=== PATIENT | male | born 1965 | race African-American/Black ===

== ENCOUNTER 2016-11-29 13:52 | Inpatient (IN) | payer MEDICARE, OTHER ==
[2016-11-29] MEDS ORDERED: RX INFO: IV CONTRAST WAS GIVEN 1 EACH MISC MISCELLANE PRN (14:34)
[2016-11-29] MEDS ORDERED: SODIUM CHLORIDE 0.9% 500 ML IV STA (14:39)
[2016-11-29 15:04] LABS: Basophils % (A) 0 %; CH 27.7; CHCM 32.6; Eosinophils # (A) 0.1 k/uL (0-0.7); Eosinophils % (A) 1 %; HCT 34.6 % (39.0-53.0); HDW 2.49; HGB 11.2 gm/dL (13.0-17.5); Luc # (Auto) 0.21; Luc % (Auto) 3; Lymphocytes # (A) 1.3 k/uL (1.0-4.8); Lymphocytes % (A) 17 %; MCH 27.5 pg (25.0-35.0); MCHC 32.3 g/dL (31.0-37.0); MCV 85.1 fL (80.0-100.0); Mean Platelet Volume 7.4; Monocytes # (A) 0.5 k/uL (0-1.0); Monocytes % (A) 6 %; Neutrophils # (A) 5.6 k/uL (1.3-7.7); Neutrophils % (A) 73 %; RBC 4.06 m/uL (4.30-5.90); RDW 13.5 % (11.5-15.5); WBC 7.7 k/uL (3.8-10.6); WBC (Perox) 8.09
[2016-11-29 15:11] LABS: Calcium 8.6 mg/dL (8.4-10.2); Potassium 4.4 mmol/L (3.5-5.1)
[2016-11-29] MEDS ORDERED: SODIUM CHLORIDE 0.9% 1,000 ML IV ONE (15:21)
[2016-11-29] MEDS ORDERED: INSULIN REGULAR 100 UNIT/ML VIAL IV STA (15:21)
--- NOTE | 2016-11-29 15:29 | ED ---
Neck Injury/Pain HPI - General Chief Complaint: Skin/Abscess/Foreign Body Stated Complaint: neck pain and swelling Time Seen by Provider: 11/29/16 14:19 Mode of arrival: ambulatory Limitations: no limitations - History of Present Illness Initial Comments: This patient is a 51-year-old man who presents for evaluation of a left sided swelling of his neck. The patient states that he noted symptoms initially 1 month ago. Since that time the swelling has gradually enlarged. Patient states that it is now causing some discomfort and he presents to have it evaluated. Patient denies fever or chills, tachycardia, difficulty with speech , breathing, or swallowing. MD Complaint: neck pain Onset/Timin -: month(s) Place: home Radiation: left lateral Severity: moderate Quality: dull Consistency: constant Improves With: none Worsens With: none Associated Symptoms: none - Related Data Home Medications Medication Instructions Recorded Confirmed No Known Home Medications [No 11/29/16 11/29/16 Known Home Medications] Allergies Allergy/AdvReac Type Severity Reaction Status Date / Time No Known Allergies Allergy Verified 11/29/16 15:16 Review of Systems ROS Statement: Those systems with pertinent positive or pertinent negative responses have been documented in the HPI. ROS Other: All systems not noted in ROS Statement are negative. Constitutional: Denies: fever, chills Respiratory: Denies: cough, dyspnea, stridor Cardiovascular: Denies: chest pain, palpitations, syncope Gastrointestinal: Denies: vomiting Musculoskeletal: Denies: back pain Skin: Reports: as per HPI, lesions Neurological: Denies: headache, weakness, numbness, paresthesias Past Medical History Past Medical History: Diabetes Mellitus, Hyperlipidemia, Hypertension Additional Past Medical History / Comment(s): neuropathy History of Any Multi-Drug Resistant Organisms: None Reported Past Surgical History: No Surgical Hx Reported Past Psychological History: No Psychological Hx Reported Smoking Status: Current every day smoker Past Alcohol Use History: None Reported Past Drug Use History: None Reported General Exam Limitations: no limitations General appearance: alert, in no apparent distress Head exam: Present: atraumatic, normocephalic Eye exam: Present: normal appearance. Absent: scleral icterus, conjunctival injection ENT exam: Present: normal oropharynx Neck exam: Present: full ROM, other (The patient has an approximately 12-15 cm left sided neck mass. There is some minimal redness overlying part of it. There is minimal tenderness.). Absent: tenderness, meningismus, lymphadenopathy , thyromegaly Respiratory exam: Present: normal lung sounds bilaterally. Absent: respiratory distress, wheezes, rales, rhonchi, stridor Cardiovascular Exam: Present: normal rhythm, tachycardia, normal heart sounds. Absent: systolic murmur, diastolic murmur, rubs, gallop GI/Abdominal exam: Present: soft. Absent: tenderness Extremities exam: Present: normal inspection, normal capillary refill Back exam: Present: normal inspection Neurological exam: Present: alert Skin exam: Present: warm, dry, intact. Absent: rash Course Vital Signs 11/29/16 11/29/16 11/29/16 13:55 14:44 16:28 Temperature 99.2 F Pulse Rate 118 H 102 H 91 Respiratory 18 18 18 Rate Blood Pressure 219/102 198/105 177/104 O2 Sat by Pulse 99 96 98 Oximetry 11/29/16 17:58 Temperature Pulse Rate 84 Respiratory 18 Rate Blood Pressure 165/88 O2 Sat by Pulse 99 Oximetry Medical Decision Making - Lab Data Result diagrams: 11/29/16 14:46 11/29/16 14:46 Lab Results 11/29/16 11/29/16 11/29/16 Range/Units 14:46 14:46 16:26 WBC 7.7 (3.8-10.6) k/uL RBC 4.06 L (4.30-5.90) m/uL Hgb 11.2 L (13.0-17.5) gm/dL Hct 34.6 L (39.0-53.0) % MCV 85.1 (80.0-100.0) fL MCH 27.5 (25.0-35.0) pg MCHC 32.3 (31.0-37.0) g/dL RDW 13.5 (11.5-15.5) % Plt Count 310 (150-450) k/uL Neutrophils % 73 % Lymphocytes % 17 % Monocytes % 6 % Eosinophils % 1 % Basophils % 0 % Neutrophils # 5.6 (1.3-7.7) k/uL Lymphocytes # 1.3 (1.0-4.8) k/uL Monocytes # 0.5 (0-1.0) k/uL Eosinophils # 0.1 (0-0.7) k/uL Basophils # 0.0 (0-0.2) k/uL Sodium 128 L (137-145) mmol/L Potassium 4.4 (3.5-5.1) mmol/L Chloride 91 L (98-107) mmol/L Carbon Dioxide 23 (22-30) mmol/L Anion Gap 14 mmol/L BUN 20 (9-20) mg/dL Creatinine 1.51 H (0.66-1.25) mg/dL Est GFR (MDRD) Af Amer 59 (>60 ml/min/1.73 sqM) Est GFR (MDRD) Non-Af 49 (>60 ml/min/1.73 sqM) Glucose 601 H* (74-99) mg/dL POC Glucose (mg/dL) 395 H (75-99) mg/dL POC Glu Finisher Tailor Apprentice ID Odilia Ashton Calcium 8.6 (8.4-10.2) mg/dL Disposition Clinical Impression: Hyperglycemia due to type 2 diabetes mellitus, Hypertension, Mass of left side of neck Disposition: ADMITTED IP TO THIS HOSP Condition: Fair
--- NOTE | 2016-11-29 16:05 | CT ---
EXAMINATION TYPE: CT soft tissue neck w con DATE OF EXAM: 11/29/2016 3:47 PM COMPARISON: NONE HISTORY: Left Neck swelling for [address] DLP: 430.7 mGycm CONTRAST: Patient injected with 50 mL of Visipaque 320. TECHNIQUE: Axial images at 3 mm thick sections. Reconstructed images in the coronal plane and sagitt al plane are reviewed. FINDINGS: Limited CT sections are obtained the lung apices. The lung apices appear clear. There is s oft tissue density within the subcarinal region. Punctate calcifications are within this region. Ther e is fullness within the right suprahilar region. Aortopulmonic window and pretracheal lymphadenopath y appears enlarged. The largest lymph nodes appear to be in the right peribronchial region measuring 1.7 cm, pretracheal region measuring 1.7 cm in aortopulmonic window measuring 1.[address] neck: The torus tubarius and fossa of Rosenmuller are normal. Jackhammer Splitter Operator spaces are normal. Para nasal sinuses and mastoid air cells are clear. Parotid glands appear normal and symmetrical. Submandibular glands, are normal. Parapharyngeal spac es are normal. There is a large irregular hypodense mass within the left neck. This is estimated to measure 5.4 x 7.4 cm in size. Abscess formation should be considered. Parotid mass could be considere d. Necrotic lymphadenopathy could be considered. Small lymph nodes are in the soft tissues deep to th e sternocleidomastoid muscle. The hypopharynx appears within normal limits. Vocal cord level appear symmetrical. Thyroid as visualized is normal. Osseous structures are normal. IMPRESSIONS: 1. Large irregular hypodensity within the posterior lateral left neck. Differential diagnosis could i nclude necrotic lymphadenopathy, abscess formation, parotid mass. Correlate with the patient's sympto ms and timing of development. 2. Enlarged lymphadenopathy within the visualized portions of the mediastinum. Consider lymphoma over all within the anterior frontal diagnosis. 3. Report was called case discussed with Dr. Dunn by Dr. Romero by telephone at time of interpreta tion.
[2016-11-29 16:30] LABS: Glucose,Whole Blood 395 mg/dL (75-99)
[2016-11-29] MEDS ORDERED: LISINOPRIL 10 MG TAB PO STA (17:33)
[2016-11-29] MEDS ORDERED: NALOXONE 0.4 MG/ML 1 ML VIAL IV PRN (17:59)
[2016-11-29] MEDS ORDERED: ONDANSETRON 4 MG/2 ML VIAL IVP PRN (17:59)
[2016-11-29] MEDS ORDERED: AMPICILLIN-SULBACTAM 3 GM in SODIUM CHLORIDE 0.9% 100 ML IVPB STA (18:09)
[2016-11-29] MEDS: SODIUM CHLORIDE 0.9% 1,000 ML IV SCH (18:25)
[2016-11-29] MEDS ORDERED: hydrALAZINE HCL 50 MG TAB PO PRN (19:44)
[2016-11-29 20:14] LABS: Glucose,Whole Blood 342 mg/dL (75-99)
[2016-11-29] MEDS: INSULIN LISPRO (humaLOG) 300 UNIT/3 ML VIAL SQ SCH (20:19)
[2016-11-29] MEDS: FAMOTIDINE 20 MG TAB PO SCH (20:19)
[2016-11-29] MEDS ORDERED: INSULIN GLARGINE 100 UNIT/ML 10 ML VIAL SQ SCH (21:00)
[2016-11-29] MEDS ORDERED: INSULIN GLARGINE 100 UNIT/ML 10 ML VIAL SQ ONE (21:00)
[2016-11-29 22:37] VITALS: BMI 36.4
[2016-11-29] MEDS: AMPICILLIN-SULBACTAM 3 GM in SODIUM CHLORIDE 0.9% 100 ML IVPB SCH (23:47)
[2016-11-30 02:20] LABS: Glucose,Whole Blood 225 mg/dL (75-99)
[2016-11-30] MEDS: AMPICILLIN-SULBACTAM 3 GM in SODIUM CHLORIDE 0.9% 100 ML IVPB SCH ×4 (05:39→23:44)
[2016-11-30 07:10] LABS: Glucose,Whole Blood 123 mg/dL (75-99)
[2016-11-30 07:24] LABS: Basophils % (A) 0 %; CH 27.8; Eosinophils # (A) 0.1 k/uL (0-0.7); Eosinophils % (A) 1 %; HCT 31.6 % (39.0-53.0); HDW 2.45; HGB 10.3 gm/dL (13.0-17.5); Luc % (Auto) 3; Lymphocytes # (A) 1.5 k/uL (1.0-4.8); Lymphocytes % (A) 20 %; MCH 27.7 pg (25.0-35.0); MCHC 32.8 g/dL (31.0-37.0); MCV 84.5 fL (80.0-100.0); Mean Platelet Volume 7.2; Monocytes # (A) 0.5 k/uL (0-1.0); Monocytes % (A) 7 %; Neutrophils # (A) 5.1 k/uL (1.3-7.7); Neutrophils % (A) 69 %; RBC 3.73 m/uL (4.30-5.90); RDW 13.5 % (11.5-15.5); WBC 7.4 k/uL (3.8-10.6); WBC (Perox) 7.99
[2016-11-30 07:41] LABS: Anion Gap 7 mmol/L; Blood Urea Nitrogen 14 mg/dL (9-20); Calcium 8.4 mg/dL (8.4-10.2); Carbon Dioxide 25 mmol/L (22-30); Chloride 105 mmol/L (98-107); Glucose 122 mg/dL (74-99); Non-African American GFR(MDRD) 58 (>60 ml/min/1.73 sqM); Potassium 3.8 mmol/L (3.5-5.1); Sodium 137 mmol/L (137-145)
--- NOTE | 2016-11-30 07:49 | HP ---
DATE OF ADMISSION: 11/29/2016 The patient is a very pleasant 51 -year-old gentleman came in with complaints of left sided neck swelling, ( ) small golf ball and now grew too much bigger size, about 10 inch ball ( ). On exam, it appeared to be ( ), the patient denied any fever or chills. The patient ( ) tender upon pushing on it, because of the stretching of the skin, the patient does have some redness, the patient has localized tenderness. Does not appear to be like an abscess, not tender enough to say abscess. The patient ( ) mostly ( ). CT scan of the chest and neck was done that showed some anterior chest lymphadenopathy along with ( ) from the parotid gland or even ( ) which is ( ) lymphadenopathy. The possibility of which cannot be ruled out and the patient is diabetic, does not take any medications ( ) physician, the patient came in with elevated blood sugars with significant drop in blood sugars with just 10 units of IV insulin, the patient's blood sugars are around 600. When he came in, they have come down at this time and the patient is hyponatremic secondary to pseudo-hypoglycemia and ( ) consideration. REVIEW OF SYSTEMS: CONSTITUTIONAL: No fever, no malaise, no fatigue. HEENT: No recent visual problems or hearing problems. Denied any sore throat. NECK: As mentioned earlier. CARDIOVASCULAR: No chest pain, orthopnea, PND, no palpitations, no syncope. PULMONARY: No shortness of breath, no cough, no hemoptysis. GASTROINTESTINAL: No diarrhea, no nausea, no vomiting, no abdominal pain. Normoactive bowel sounds. NEUROLOGICAL: No headaches, no weakness, no numbness. HEMATOLOGICAL: Denies any bleeding or petechiae. GENITOURINARY: Denies any burning micturition, frequency, or urgency. MUSCULOSKELETAL/RHEUMATOLOGICAL: Denies any joint pain, swelling, or any muscle pain. ENDOCRINE: Denies any polyuria or polydipsia. The rest of the 14 point review of systems is negative. PAST MEDICAL HISTORY: None. Home medications: None. The patient does have history of diabetes mellitus, hyperlipidemia and hypertension. The patient does smoke a pack per day. Denied any alcohol abuse, denied any drug abuse. FAMILY HISTORY: Significant for hypertension and diabetes mellitus . PHYSICAL EXAMINATION: Pulse of 118 when he came in because he was dehydrated and ( ) 219 now. Blood pressure 137/104, pulse 91. Respiratory rate 18. GENERAL: The patient is alert and oriented x3, not in any acute distress. Well developed, well nourished. HEENT: Pupils are round and equally reacting to light. EOMI. No scleral icterus. No conjunctival pallor. Normocephalic, atraumatic. No pharyngeal erythema. No thyromegaly. NECK: ( ). CARDIOVASCULAR: S1 and S2 present. No murmurs, rubs, or gallops. PULMONARY: Chest is clear to auscultation, no wheezing or crackles. ABDOMEN: Soft, nontender, nondistended, normoactive bowel sounds. No palpable organomegaly. MUSCULOSKELETAL: No joint swelling or deformity. EXTREMITIES: No cyanosis, clubbing, or pedal edema. NEUROLOGICAL: Gross neurological examination did not reveal any focal deficits. SKIN: No rashes. LABORATORY DATA: CBC, BMP significant for low sodium of 128, creatinine 1.51 with blood glucose of 601. Patient does not have any leukocytosis. CBC: No significant abnormality was appreciated. ASSESSMENT AND PLAN: 1. Left sided neck mass ( ) but can be related to lymphoma, mostly Hodgkin's lymphoma with some necrotic area, we will obtain surgical consult for possible biopsy versus drainage although does not appear to be an abscess although the patient was started on Unasyn which ( ) at this time. 2. Diabetes mellitus Type II. Uncontrolled blood sugars as the patient is highly noncompliant with medications, will be started on Lantus along with sliding scale insulin ( ) the patient will be started on diet. 3. Hypovolemic hyponatremia along with pseudo-hyponatremia. Patient will be started on IV fluids at ( ) per hour. 4. ( ) intravascular volume depletion. 5. Hypertension. Will monitor the ( ) blood pressure goes up to ( ) 120 depending on his labs tomorrow, we ( ) on Lisinopril. ( ) I do not believe ( ) at this point of time ( ). 6. Hyperlipidemia. I do not have any ( ) level available at this point of time. Patient will need a primary care physician upon discharge.
[2016-11-30] MEDS: SODIUM CHLORIDE 0.9% 1,000 ML IV SCH ×3 (07:54→18:30)
[2016-11-30] MEDS: FAMOTIDINE 20 MG TAB PO SCH ×2 (07:54→21:44)
[2016-11-30] MEDS: INSULIN LISPRO (humaLOG) 300 UNIT/3 ML VIAL SQ SCH ×4 (07:55→21:44)
--- NOTE | 2016-11-30 08:31 | CONS ---
DATE OF CONSULTATION: ADDENDUM: The patient will need consultation also for his chest lymphadenopathy with the appropriate service, likely cardiothoracic surgery for possible further biopsy or work-up. Continue his medical management otherwise for his other issues such hypoglycemia and hypertension.
--- NOTE | 2016-11-30 08:39 | CONS ---
DATE OF CONSULTATION: REASON FOR CONSULTATION: Left neck mass. HISTORY: This is a 51-year-old black male who has had gradually enlarging left neck mass for one month. This had become uncomfortable with minimal pain although he has had no fever, chills, tachycardia, hoarseness, respiratory difficulty or dysphagia. He did state that he had a "boil" under his chin previously, which he would express drainage out of but never in this area. His ER evaluation also showed hyperglycemia with blood sugar of 600 and also hypertension and these are being treated as an inpatient. He is empirically on Unasyn presently. PAST MEDICAL HISTORY: Positive for diabetes, hypertension, hyperlipidemia, neuropathy. PAST SURGICAL HISTORY: A colonoscopy, age 43, which was negative. ALLERGIES: No known drug allergies. CURRENT HOME MEDICATIONS: None, although he has been prescribed insulin previously, but he has not been taking this for the last 2 months. SOCIAL HISTORY: He does smoke. He does not drink alcohol. REVIEW OF SYSTEMS: Noncontributory other than as above. PHYSICAL EXAM: VITAL SIGNS: Temperature 98.2. Admission pulse 118, although this diminished to within normal limits. Blood pressure initially at 219/102, although this has improved on the floor also. O2 saturation 96 to 99% on room air. GENERAL: Well-developed black male in no acute distress. HEENT: Head normocephalic and atraumatic. Ears bilateral canals clear, tympanic membranes unremarkable and mobile. Nose shows no drainage or obstruction. Mouth and throat show no abnormal masses or lesions. The left posterolateral neck shows a large mass approximately 12 cm across with discoloration darkening of the skin and erythema. It is tender mildly to moderately palpation. It is soft and feels fluctuant deeply. LUNGS: Clear to auscultation bilaterally. HEART: Regular rate and rhythm without murmur, gallop appreciated. EXTREMITIES: No gross deformities. NEUROLOGIC: Grossly intact. Labs showed a normal white blood cell count at 7700, although he is anemic at 11.[address] showed 5.4 x 7.4 cm large area of hypodense mass left neck with multiple considerations in the differential including abscess, parotid mass, necrotic lymphadenopathy and there are also smaller lymph nodes in the area. He did have some mediastinal and chest nodes also noted. ASSESSMENT: 1. Left neck abscess. 2. Hyperglycemia. 3. Hypertension. 4. Mediastinal lymphadenopathy. PLAN: I have recommended fine-needle aspiration of this mass and reviewed the indications, alternatives, potential benefits, and risks of the procedure with the patient with the risks including but not inclusive of the risks of local anesthesia, bleeding, infection, scarring, numbness, decrease shoulder mobility. The patient understands these risks and agree to proceed. This was performed. See procedure note. Approximately 7 mL of purulence was obtained. This was sent for culture. I have further recommended formal incision and drainage of this left neck abscess. I reviewed the indications, alternatives and potential benefits, and risks of the procedure with the patient with risks including but not inclusive of the risks of local anesthesia with IV sedation, which I reviewed with him and he would prefer rather than straight local anesthesia, bleeding, infection, scarring, cosmetic deformity, recurrence, need for further procedures in the future depending on final pathology, healing and possibility of repeat abscess formation, the numbness, decrease shoulder mobility due to the proximately of spinal accessory nerve. The patient understands these risks and agrees to proceed. He is empirically on Unasyn already. Surgery will be scheduled for tomorrow morning. He is already n.p.o after midnight.
--- NOTE | 2016-11-30 08:41 | PCN ---
DATE OF PROCEDURE: PREOPERATIVE DIAGNOSIS: Left neck mass. POSTOPERATIVE DIAGNOSIS: Left neck abscess. PROCEDURE: Fine needle aspiration. ANESTHESIA: Local. ESTIMATED BLOOD LOSS: Minimal 1 mL. COMPLICATIONS: None. OPERATIVE FINDINGS: Large left neck abscess with aspiration of approximately 8 mL of purulent drainage, which was cultured. PROCEDURE: Patient was in his hospital bed in a supine position. Informed consent was obtained as noted above. Patient was prepped and draped in the usual aseptic fashion. Then 1% lidocaine with 1: 100,000 epinephrine was infused subcutaneously with a total of 1 mL used. A 23 gauge needle was then used to aspirate in the central portion of the abscess, as noted above. This did decompress the mass to a degree but not nearly completely. Sterile Band-Aid was placed. It was apparent this would need a formal incision and drainage as this was quite large and needle aspiration would not suffice to improve this further. The patient tolerated the procedure well with no complications.
[2016-11-30] MEDS ORDERED: LISINOPRIL 10 MG TAB PO SCH (09:00)
[2016-11-30] MEDS ORDERED: SODIUM CHLORIDE 0.9% 1,000 ML IV ONE (09:43)
[2016-11-30] MEDS ORDERED: ONDANSETRON 4 MG/2 ML VIAL IVP ONE (09:44)
[2016-11-30] MEDS ORDERED: MIDAZOLAM 2 MG/2 ML VIAL ONE (09:51)
[2016-11-30] MEDS ORDERED: PROPOFOL 10 MG/ML 20 ML VIAL IV ONE (09:51)
[2016-11-30] MEDS ORDERED: fentaNYL (PF) 50 MCG/ML 2 ML AMP ONE (09:51)
[2016-11-30] MEDS ORDERED: LIDOCAINE 1%-EPI 1:100,000 20 ML VIAL SQ ONE ×2 (10:09)
--- NOTE | 2016-11-30 10:35 | P.OP ---
Date of Procedure: 11/30/16 Preoperative Diagnosis: Left neck abscess Postoperative Diagnosis: Same Procedure(s) Performed: Incision and drainage left neck abscess Anesthesia: MAC Surgeon: Armin Reed Estimated Blood Loss (ml): 5 Pathology: none sent Condition: stable Disposition: PACU Indications for Procedure: This is a 51-year-old black male with a progressively enlarging left neck mass for the last month which has become tender. Needle aspiration last night showed purulence- computed tomography scan showed 7 x 5 cm mass with multiple diagnoses potentially listed as etiology including abscess Operative Findings: Large left posterior lateral neck abscess approximately 12 cm with copious purulence which was recultured Description of Procedure: The patient was brought to the operative suite and placed in a supine position. The patient underwent induction of IV sedation after appropriate monitors were placed by the flight security specialist. The patient was prepped and draped in usual aseptic fashion. 1% lidocaine with 1 100,000 epinephrine was infused subcutaneously and field block fashion overlying the left neck abscess. A 2.5 cm incision was made in the midportion of the abscess and carried through the skin and subcutaneous tissue where the abscess was entered. This was approximately 1 cm below the skin surface. Copious amount of purulent drainage was suctioned as well as cultured. This was allowed to drain until no further purulence was noted. The wound was irrigated with sterile normal saline until no further purulence was noted. A 1/4 inch Ángel drain was placed sutured to the skin with a 3-0 Prolene suture. A light pressure dressing was then placed. The patient was allowed to emerge from anesthesia having tolerated procedure well was transferred postoperative recovery area in satisfactory condition.
--- NOTE | 2016-11-30 10:47 | P.PN ---
Progress Note - Text Patient underwent incision and drainage left neck abscess today. He tolerated this well. He does have a small [place] drain. The patient already preoperatively that once she is ready for discharge otherwise medically he can be discharged to home. He does have cultures pending. Empirically would use Unasyn which he is already on and Augmentin would be reasonable postoperatively and less cultures indicate other sensitivities which may need antibiotic change. He would then need to follow up in the office. This drain would need to stay at least a few days and he can follow up in the office for drain removal upon discharge. The dressing can be changed once a day and as needed and I reviewed this with the patient already. Please contact me if there are any questions or concerns.
[2016-11-30] MEDS ORDERED: HYDROmorphone 1 MG/ML 1 ML SYRINGE IVP ONE (11:00)
[2016-11-30 11:20] LABS: Glucose,Whole Blood 147 mg/dL (75-99)
[2016-11-30] MEDS: traMADol 50 MG TAB PO PRN ×2 (12:25→20:30)
[2016-11-30] MEDS: MORPHINE SULFATE 4 MG/ML SYRINGE IVP PRN (15:34)
[2016-11-30] MEDS ORDERED: IV VANCOMYCIN PER PHARMACY 1 EACH MISC MISCELLANE PRN (16:14)
--- NOTE | 2016-11-30 16:59 | PN ---
Patient is a 51-year-old diabetic with uncontrolled blood sugars, came in with abscess of the left neck area. Patient underwent drainage today. Wound cultures were sent and also I will add vancomycin to his regimen. Patient is already on Unasyn. Patient apparently had a chin abscess in the past. REVIEW OF SYSTEMS: CARDIOVASCULAR: No chest pain, no orthopnea, no PND, no palpitations. PULMONARY: Denied any shortness of breath. No cough or hemoptysis. GASTROINTESTINAL: No diarrhea, nausea or vomiting. No abdominal pain. Normoactive bowel sounds. NEUROLOGIC: No headaches, no weakness, no numbness. NECK AREA: Patient is complaining of severe pain. Medications were reviewed. Medication changes as mentioned in the interval history. PHYSICAL EXAMINATION: VITAL SIGNS: Temperature 97.9, pulse of 78, respiratory rate OF 16, blood pressure 159/76, saturating at 97% on room air. HEENT EXAMINATION: Patient has a left and neck mass, which is surgically drained and postsurgically packed. GENERAL: The patient is alert and oriented x3, not in any acute distress. Well developed, well nourished. Normocephalic, atraumatic. No pharyngeal erythema. No thyromegaly. CARDIOVASCULAR: S1 and S2 present. No murmurs, rubs, or gallops. PULMONARY: Chest is clear to auscultation, no wheezing or crackles. ABDOMEN: Soft, nontender, nondistended, normoactive bowel sounds. No palpable organomegaly. MUSCULOSKELETAL: No joint swelling or deformity. EXTREMITIES: No cyanosis, clubbing, or pedal edema. NEUROLOGICAL: Gross neurological examination did not reveal any focal deficits. SKIN: No rashes. LABORATORY DATA: CBC, CMP are significant for improved sodium to 137, creatinine improved to 1.3. ASSESSMENT AND PLAN: 1. Left-sided neck abscess, patient is status post drainage, he is on Unasyn. 2. Type 2 diabetes mellitus, uncontrolled blood sugars secondary to noncompliance with medication. Patient's blood sugars are well controlled now. Patient will be started on metformin if his kidney function improves upon discharge. 3. Hypovolemic, hyponatremia along with pseudohyponatremia improved with IV fluids and control of blood sugars. 4. Severe intravascular volume depletion and acute renal failure secondary to that, which improved. 5. Hypertension. Continue with ( ) and hydralazine. Once his kidney function improves, patient can be started on lisinopril and awaiting abscess cultures.
[2016-11-30 17:18] LABS: Glucose,Whole Blood 238 mg/dL (75-99)
[2016-11-30] MEDS: VANCOMYCIN 2,000 MG in SODIUM CHLORIDE 0.9% 500 ML IVPB SCH (20:31)
[2016-11-30 20:41] LABS: Glucose,Whole Blood 266 mg/dL (75-99)
[2016-11-30] MEDS: INSULIN GLARGINE 100 UNIT/ML 10 ML VIAL SQ SCH (21:44)
[2016-12-01] MEDS: MORPHINE SULFATE 4 MG/ML SYRINGE IVP PRN ×3 (01:49→14:45)
[2016-12-01 03:14] LABS: Glucose,Whole Blood 125 mg/dL (75-99)
[2016-12-01] MEDS: AMPICILLIN-SULBACTAM 3 GM in SODIUM CHLORIDE 0.9% 100 ML IVPB SCH ×4 (05:41→23:51)
[2016-12-01] MEDS: traMADol 50 MG TAB PO PRN ×3 (05:41→22:09)
[2016-12-01] MEDS: SODIUM CHLORIDE 0.9% 1,000 ML IV SCH ×3 (05:42→17:52)
[2016-12-01 06:54] LABS: Glucose,Whole Blood 91 mg/dL (75-99)
[2016-12-01] MEDS: VANCOMYCIN 2,000 MG in SODIUM CHLORIDE 0.9% 500 ML IVPB SCH ×2 (07:40→19:16)
[2016-12-01] MEDS: INSULIN LISPRO (humaLOG) 300 UNIT/3 ML VIAL SQ SCH ×4 (08:03→20:31)
[2016-12-01] MEDS: FAMOTIDINE 20 MG TAB PO SCH ×2 (08:04→20:30)
[2016-12-01 10:54] LABS: Basophils % (A) 0 %; CH 27.6; CHCM 32.2; Eosinophils # (A) 0.1 k/uL (0-0.7); Eosinophils % (A) 2 %; HCT 31.3 % (39.0-53.0); HDW 2.39; Luc # (Auto) 0.14; Luc % (Auto) 3; Lymphocytes # (A) 1.6 k/uL (1.0-4.8); Lymphocytes % (A) 26 %; MCH 27.5 pg (25.0-35.0); Monocytes # (A) 0.4 k/uL (0-1.0); Monocytes % (A) 7 %; Neutrophils # (A) 3.6 k/uL (1.3-7.7); Neutrophils % (A) 62 %; RBC 3.64 m/uL (4.30-5.90); WBC 5.9 k/uL (3.8-10.6); WBC (Perox) 6.36
[2016-12-01 11:05] LABS: Anion Gap 6 mmol/L; Blood Urea Nitrogen 12 mg/dL (9-20); Calcium 8.1 mg/dL (8.4-10.2); Carbon Dioxide 27 mmol/L (22-30); Chloride 103 mmol/L (98-107); Glucose 164 mg/dL (74-99); Non-African American GFR(MDRD) 51 (>60 ml/min/1.73 sqM); Potassium 4.6 mmol/L (3.5-5.1); Sodium 136 mmol/L (137-145)
[2016-12-01 11:33] LABS: Glucose,Whole Blood 171 mg/dL (75-99)
--- NOTE | 2016-12-01 11:45 | PN ---
A 51-year-old who came in with left neck abscess and patient has uncontrolled blood sugars, due to noncompliance of medications and patient underwent drainage and wound cultures are showing gram-positive cocci. It is probably mostly Streptococcus or Staphylococcus and patient on vancomycin and Unasyn at this point of time to cover the ( ) as well. Patient's symptoms started as folliculitis, I believe. Because of uncontrolled blood sugars, patient ended up having this abscess. REVIEW OF SYSTEMS: CARDIOVASCULAR: No chest pain, no orthopnea, no PND, no palpitations. PULMONARY: Denied any shortness of breath. No cough or hemoptysis. GASTROINTESTINAL: No diarrhea, nausea or vomiting. No abdominal pain. Normoactive bowel sounds. NEUROLOGIC: No headaches, no weakness, no numbness. Medications were reviewed. PHYSICAL EXAMINATION: VITAL SIGNS: Temperature 98.1, pulse of 82, respiratory rate of 16, blood pressure is 133/70, saturating at 97% on room air. HEENT EXAMINATION: Patient's left side of the neck is packed and I did not examine that as patient has a drain in place that needs to be open by an ENT surgeon. GENERAL: The patient is alert and oriented x3, not in any acute distress. Well developed, well nourished. Normocephalic, atraumatic. No pharyngeal erythema. No thyromegaly. CARDIOVASCULAR: S1 and S2 present. No murmurs, rubs, or gallops. PULMONARY: Chest is clear to auscultation, no wheezing or crackles. ABDOMEN: Soft, nontender, nondistended, normoactive bowel sounds. No palpable organomegaly. MUSCULOSKELETAL: No joint swelling or deformity. EXTREMITIES: No cyanosis, clubbing, or pedal edema. NEUROLOGICAL: Gross neurological examination did not reveal any focal deficits. SKIN: No rashes. LABORATORY DATA: CBC, no significant abnormality compared to yesterday. I do not have any basic metabolic profile at this time. ASSESSMENT AND PLAN: 1. Neck abscess, status post consistent drainage. 2. Type 2 diabetes mellitus, uncontrolled blood sugars due to noncompliance with medications. 3. Hypovolemic hyponatremia. 4. Hypertension. 5. Hyperlipidemia. 6. Severe intravascular volume depletion on admission, improved with IV fluids. Plan is to continue with present medications, awaiting cultures and awaiting recommendations from ENT. We have to wait until I get the cultures and studies before I can discharge the patient.
[2016-12-01 17:08] LABS: Glucose,Whole Blood 193 mg/dL (75-99)
[2016-12-01] MEDS: ONDANSETRON 4 MG/2 ML VIAL IVP PRN (17:58)
[2016-12-01 20:24] LABS: Glucose,Whole Blood 212 mg/dL (75-99)
[2016-12-01] MEDS: INSULIN GLARGINE 100 UNIT/ML 10 ML VIAL SQ SCH (20:30)
[2016-12-01] MEDS: PREGABALIN 100 MG CAP PO SCH (20:31)
[2016-12-02] MEDS: SODIUM CHLORIDE 0.9% 1,000 ML IV SCH ×3 (01:16→17:14)
[2016-12-02 02:10] LABS: Glucose,Whole Blood 225 mg/dL (75-99)
[2016-12-02] MEDS ORDERED: VANCOMYCIN TROUGH DUE 1 EACH MISC MISCELLANE ONE (05:00)
[2016-12-02] MEDS: AMPICILLIN-SULBACTAM 3 GM in SODIUM CHLORIDE 0.9% 100 ML IVPB SCH ×4 (05:24→23:35)
[2016-12-02 05:34] LABS: CH 27.4; CHCM 32.3; HCT 29.5 % (39.0-53.0); HDW 2.43; HGB 9.5 gm/dL (13.0-17.5); MCH 27.5 pg (25.0-35.0); MCHC 32.3 g/dL (31.0-37.0); MCV 85.3 fL (80.0-100.0); Mean Platelet Volume 8.8; RBC 3.45 m/uL (4.30-5.90); RDW 13.8 % (11.5-15.5); WBC 4.7 k/uL (3.8-10.6)
[2016-12-02 05:53] LABS: Calcium 8.1 mg/dL (8.4-10.2); Potassium 4.3 mmol/L (3.5-5.1)
[2016-12-02] MEDS: traMADol 50 MG TAB PO PRN ×2 (06:09→18:08)
[2016-12-02] MEDS: VANCOMYCIN 2,000 MG in SODIUM CHLORIDE 0.9% 500 ML IVPB SCH (06:34)
[2016-12-02 07:10] LABS: Glucose,Whole Blood 206 mg/dL (75-99)
[2016-12-02] MEDS: FAMOTIDINE 20 MG TAB PO SCH ×2 (07:47→20:56)
[2016-12-02] MEDS: INSULIN LISPRO (humaLOG) 300 UNIT/3 ML VIAL SQ SCH ×4 (07:47→20:56)
[2016-12-02] MEDS: ATORVASTATIN 20 MG TAB PO SCH (07:47)
[2016-12-02] MEDS: PREGABALIN 100 MG CAP PO SCH ×2 (07:52→20:55)
[2016-12-02] MEDS: LISINOPRIL 10 MG TAB PO SCH (10:31)
[2016-12-02 12:15] LABS: Glucose,Whole Blood 285 mg/dL (75-99)
[2016-12-02] MEDS: ONDANSETRON 4 MG/2 ML VIAL IVP PRN (12:27)
[2016-12-02 17:11] LABS: Glucose,Whole Blood 223 mg/dL (75-99)
--- NOTE | 2016-12-02 17:12 | P.PN ---
Subjective Date of service 12/02/2016 Progress note being dictated for Dr. Doss Interval history: This is a 51-year-old gentleman admitted with left neck abscess, uncontrolled diabetes mellitus, hypovolemic hyponatremia, severe intravascular depletion and multiple other medical issues. Maintained on IV fluid hydration, Unasyn. Wound cultures positive for staph capitis SS capitis. Anaerobic culture pending. Afebrile, normal WBC. Evaluated by ENT with recommendations noted. Positive diet intake., No nausea or vomiting .blood sugars elevated in the 200s, improving .Denies chest pain, palpitations or increasing shortness of breath. Objective - Vital Signs Vital signs: Vital Signs Temp 97.8 F 12/02/16 15:30 Pulse 72 12/02/16 15:30 Resp 18 12/02/16 15:30 BP 149/92 12/02/16 15:30 Pulse Ox 98 12/02/16 15:30 Intake & Output 12/01/16 12/02/16 12/02/16 18:59 06:59 18:59 Intake Total 200 2090 849 Balance 200 2090 849 Weight 122 kg 122 kg Intake: IV 200 100 100 Ampicillin-Sulbactam 3 gm 200 100 100 In Sodium Chloride 0.9% 100 ml @ 100 mls/hr IVPB Q6HR [facility] Rx#:[id number] Intake, IV Titration 1150 749 Amount Ampicillin-Sulbactam 3 gm 100 749 In Sodium Chloride 0.9% 100 ml @ 100 mls/hr IVPB Q6HR [facility] Rx#:[id number] Sodium Chloride 0.9% 1, 550 000 ml @ 125 mls/hr IV . Q8H [facility] Rx#:[id number] Vancomycin 2,000 mg In 500 Sodium Chloride 0.9% 500 ml @ 167 mls/hr IVPB Q12H [facility] Rx#:[id number] Oral 840 Other: Voiding Method Toilet Toilet Toilet # Voids 1 1 3 - Exam PHYSICAL EXAM: VITAL SIGNS: As above GENERAL: [Sitting up in bed, no acute distress] HEENT: [Pupils equal conjunctiva normal.] NECK: [Supple, trachea midline, no JVD] RESPIRATORY EFFORT:[Normal] LUNGS: [Lungs clear, no crackles wheezes, rhonchi] CARDIOVASCULAR[regular S1 and S2, no murmurs rubs or gallops, no edema] GI: [Abdomen soft, nontender, positive bowel sounds.] PSYCH: [Alert and oriented -3, mood and affect normal.] SKIN: Left neck dressing clean dry and intact NEURO: No focal deficits, moves all 4 extremities, strength and sensation intact Microbiology 11/30/16 10:22 Neck Gram Stain - Final 11/30/16 10:22 Neck Wound Culture - Final Staph capitis SS capitis 11/29/16 22:16 Neck Gram Stain - Final 11/29/16 22:16 Neck Wound Culture - Final Staph capitis SS capitis 11/30/16 10:22 Neck Anaerobic Culture - Preliminary 11/29/16 22:16 Neck Anaerobic Culture - Preliminary - Labs CBC & Chem 7: 12/02/16 05:24 12/02/16 05:24 Labs: Abnormal Lab Results - Last 24 Hours (Table) 12/01/16 12/01/16 12/02/16 Range/Units 17:07 20:22 02:08 RBC (4.30-5.90) m/uL Hgb (13.0-17.5) gm/dL Hct (39.0-53.0) % Sodium (137-145) mmol/L Creatinine (0.66-1.25) mg/dL Glucose (74-99) mg/dL POC Glucose (mg/dL) 193 H 212 H 225 H (75-99) mg/dL Calcium (8.4-10.2) mg/dL Vancomycin Trough ug/mL 12/02/16 12/02/16 12/02/16 Range/Units 05:24 05:24 05:24 RBC 3.45 L (4.30-5.90) m/uL Hgb 9.5 L (13.0-17.5) gm/dL Hct 29.5 L (39.0-53.0) % Sodium 135 L (137-145) mmol/L Creatinine 1.60 H (0.66-1.25) mg/dL Glucose 201 H (74-99) mg/dL POC Glucose (mg/dL) (75-99) mg/dL Calcium 8.1 L (8.4-10.2) mg/dL Vancomycin Trough 32.7 H* ug/mL 12/02/16 12/02/16 Range/Units 07:08 12:07 RBC (4.30-5.90) m/uL Hgb (13.0-17.5) gm/dL Hct (39.0-53.0) % Sodium (137-145) mmol/L Creatinine (0.66-1.25) mg/dL Glucose (74-99) mg/dL POC Glucose (mg/dL) 206 H 285 H (75-99) mg/dL Calcium (8.4-10.2) mg/dL Vancomycin Trough ug/mL Microbiology - Last 24 Hours (Table) 11/30/16 10:22 Gram Stain - Final Neck Wound Culture - Final Staph capitis SS capitis 11/29/16 22:16 Gram Stain - Final Neck Wound Culture - Final Staph capitis SS capitis 11/30/16 10:22 Anaerobic Culture - Preliminary Neck 11/29/16 22:16 Anaerobic Culture - Preliminary Neck Assessment and Plan Plan: 1. [Neck abscess, status post I&D. Wound cultures positive for staph capitis SS capitis. Anaerobic culture pending. 2. [Diabetes mellitus type 2, uncontrolled], and patient noncompliant with medications. Hemoglobin A1c pending 3. Hypovolemic hyponatremia, improving. 4. [Hypertension]. 5. [Hyperlipidemia]. 6. [Severe intravascular volume depletion on admission, improved with IV fluids] . Plan: Continue on current medication regime ,monitoring and symptomatic treatment. Lantus dose increased, close monitoring of Accu-Cheks. Await anaerobic results. Discharge planning in progress. Further recommendations to follow. The impression and plan of care has been dictated as directed. : I performed a H&P examination of this patient and discussed the same with the dictator. I agree with the dictator's note. Any additional findings/opinions/ etc. will be noted.
[2016-12-02 20:33] LABS: Glucose,Whole Blood 208 mg/dL (75-99)
[2016-12-02] MEDS ORDERED: INSULIN GLARGINE 100 UNIT/ML 10 ML VIAL SQ SCH (21:00)
[2016-12-03 01:59] LABS: Glucose,Whole Blood 126 mg/dL (75-99)
[2016-12-03] MEDS: traMADol 50 MG TAB PO PRN ×2 (04:10→11:51)
[2016-12-03] MEDS: SODIUM CHLORIDE 0.9% 1,000 ML IV SCH ×2 (04:15→11:12)
[2016-12-03] MEDS: AMPICILLIN-SULBACTAM 3 GM in SODIUM CHLORIDE 0.9% 100 ML IVPB SCH ×2 (05:42→11:51)
[2016-12-03 06:49] LABS: Glucose,Whole Blood 144 mg/dL (75-99)
[2016-12-03 07:33] VITALS: RESP 18; TEMP 97
[2016-12-03] MEDS: INSULIN LISPRO (humaLOG) 300 UNIT/3 ML VIAL SQ SCH ×3 (08:12→17:15)
[2016-12-03] MEDS: FAMOTIDINE 20 MG TAB PO SCH (08:12)
[2016-12-03] MEDS: PREGABALIN 100 MG CAP PO SCH (08:13)
[2016-12-03] MEDS: LISINOPRIL 10 MG TAB PO SCH (08:13)
[2016-12-03] MEDS: ATORVASTATIN 20 MG TAB PO SCH (08:13)
[2016-12-03 08:15] LABS: Calcium 8.2 mg/dL (8.4-10.2); Potassium 4.4 mmol/L (3.5-5.1)
[2016-12-03 11:26] LABS: Glucose,Whole Blood 201 mg/dL (75-99)
[2016-12-03] MEDS ORDERED: VANCOMYCIN 2,000 MG in SODIUM CHLORIDE 0.9% 500 ML IVPB ONE (12:00)
[2016-12-03 13:05] VITALS: BP 179/93; PULSE 86
--- NOTE | 2016-12-03 17:50 | P.DS ---
Providers Date of admission: 11/29/16 17:59 Expected date of discharge: 12/03/16 Attending physician: MD Dr. Romario Hummel. Consults: Dr. Schultz, ENT Primary care physician: Stated None Dr. CLARK Hospital Course: Final Diagnoses: 1. [Neck abscess, status post I&D. Wound cultures positive for staph capitis SS capitis. Anaerobic culture pending. 2. [Diabetes mellitus type 2, uncontrolled], and patient noncompliant with medications. Hemoglobin A1c was sent to outside lab. 3. Hypovolemic hyponatremia, resolved 4. [Hypertension]. 5. [Hyperlipidemia]. 6. [Severe intravascular volume depletion on admission, improved with IV fluids] . Hospital course:This is a 51-year-old gentleman admitted with left neck abscess , uncontrolled diabetes mellitus, hypovolemic hyponatremia, severe intravascular depletion and multiple other medical issues. Maintained on IV fluid hydration, Unasyn. Wound cultures positive for staph capitis SS capitis. Preliminary Anaerobic culture pending. Evaluated by ENT , status post I&D. Patient has been cleared for discharge by ENT, drain removal outpatient at ENTs office. Close monitoring of Accu-Cheks reinforced with patient along with adherence to medication regimen. PCP appointment arranged prior to discharge. Patient is being discharged home in a stable condition with guarded prognosis. Microbiology 11/30/16 10:22 Neck Gram Stain - Final 11/30/16 10:22 Neck Wound Culture - Final Staph capitis SS capitis 11/29/16 22:16 Neck Gram Stain - Final 11/29/16 22:16 Neck Wound Culture - Final Staph capitis SS capitis 11/30/16 10:22 Neck Anaerobic Culture - Preliminary 11/29/16 22:16 Neck Anaerobic Culture - Preliminary Patient Condition at Discharge: Stable Plan - Discharge Summary New Discharge Prescriptions: Amoxicillin/Potassium Clav [Augmentin 875-125 Tablet] 1 tab PO Q12HR #20 tab Famotidine [Pepcid] 20 mg PO BID #60 tab Insulin Glargine [Lantus] 10 unit SQ HS #1 vial sitaGLIPtin PHOSPHATE [Januvia] 50 mg PO DAILY #30 tab traMADol HCl [Ultram] 50 mg PO Q6H PRN #20 tab PRN Reason: Moderate Pain Discharge Medication List INSULIN LISPRO (HumaLOG) [humaLOG] 0 units SQ ACHS 12/01/16 [History] Lisinopril [Zestril] 10 mg PO DAILY 12/01/16 [History] Metoprolol Tartrate [Lopressor] 25 mg PO DAILY 12/01/16 [History] Pregabalin [Lyrica] 100 mg PO BID 12/01/16 [History] Simvastatin [Zocor] 40 mg PO DAILY 12/01/16 [History] Amoxicillin/Potassium Clav [Augmentin 875-125 Tablet] 1 tab PO Q12HR #20 tab 05/14 [Rx] Famotidine [Pepcid] 20 mg PO BID #60 tab 12/03/16 [Rx] Insulin Glargine [Lantus] 10 unit SQ HS #1 vial 12/03/16 [Rx] sitaGLIPtin PHOSPHATE [Januvia] 50 mg PO DAILY #30 tab 12/03/16 [Rx] traMADol HCl [Ultram] 50 mg PO Q6H PRN #20 tab 12/03/16 [Rx] Follow up Appointment(s)/Referral(s): Carlos Alberto Clark MD [REFERRING] - 12/08/16 1:40 pm () Armin Reed MD [STAFF PHYSICIAN] - 12/08/16 10:00 am () Ambulatory/Diagnostic Orders: Complete Blood Count w/diff [LAB.AMB] Time Frame: 3 Days, Location: Determined By Patient Patient Instructions/Handouts: Famotidine (By mouth), Tramadol (By mouth), Sitagliptin (By mouth), Insulin Glargine (By injection), Hypertension (DC), Diabetic Hyperglycemia (DC), Abscess Incision and Drainage (DC) Activity/Diet/Wound Care/Special Instructions: 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 Change dressing daily and as needed. Ángle drain to be removed by Dr. Schultz on Thursday at time of follow-up appt. Monitor blood glucose levels before Breakfast and before dinner. Keep a log of what blood sugars are and report to Dr. Clark. Activity Limited until follow up
[2017-03-04 07:21] LABS: Glucose,Whole Blood 127 mg/dL (75-99)
== END 2016-12-03 17:45 | disposition home or self-care (01) | DRG 603 ==
LOC: EC 13:52 → 5MS5E 17:59
PROVIDERS: ADMIT Internal Medicine; ATTEND Internal Medicine
PROC: 0W963ZX Drainage of Neck, Percutaneous Approach, Diagnostic (ICD-10-PCS; principal; 2016-11-29)
PROC: 0J9500Z Drainage of Left Neck Subcutaneous Tissue and Fascia with Drainage Device, Open Approach (ICD-10-PCS; 2016-11-30)
DX: L02.11 Cutaneous abscess of neck (principal); N17.9 Acute kidney failure, unspecified; E11.40 Type 2 diabetes mellitus with diabetic neuropathy, unspecified; E11.65 Type 2 diabetes mellitus with hyperglycemia; E87.1 Hypo-osmolality and hyponatremia; E78.5 Hyperlipidemia, unspecified; E86.1 Hypovolemia; F17.210 Nicotine dependence, cigarettes, uncomplicated; I10 Essential (primary) hypertension; Z82.49 Family history of ischemic heart disease and other diseases of the circulatory system; Z83.3 Family history of diabetes mellitus; Z91.14 Patient's other noncompliance with medication regimen; B95.8 Unspecified staphylococcus as the cause of diseases classified elsewhere; Z79.4 Long term (current) use of insulin; Z79.899 Other long term (current) drug therapy
CPT/HCPCS: 36415; 70491; 80048; 80202; 82009; 83036; 85025; 85027; 87070; 87075; 87077; 87186; 87205; 96361; 96365; 96375; 99285